=== PATIENT | female | born 1980 | race Caucasian/White ===

== ENCOUNTER 2018-04-13 07:48 | Emergency (ER) | payer OTHER ==
[~2018-04-13] VITALS: Ht 160 cm; Wt 84.1 kg
[2018-04-13] MEDS ORDERED: DULO60CA44 PO (08:21)
[2018-04-13] MEDS ORDERED: MOME17N NASAL (08:21)
[2018-04-13] MEDS ORDERED: OMEP20 PO (08:21)
[2018-04-13] MEDS ORDERED: LINA290C PO (08:21)
[2018-04-13] MEDS ORDERED: TROS60CA3 PO (08:21)
[2018-04-13] MEDS ORDERED: METH18TA PO (08:21)
[2018-04-13] MEDS ORDERED: ADV250 IH (08:21)
[2018-04-13] MEDS ORDERED: SODIUM CHLORIDE 0.9% 1,000 ML IV ONE (08:30)
[2018-04-13] MEDS ORDERED: KETOROLAC TROMETHAMINE 30 MG/ML VIAL IVP ONE (08:30)
[2018-04-13 08:46] LABS: BASOPHILS % (AUTO) 0.4 % (0.0-2.0); EOSINOPHILS % (AUTO) 1.7 % (1.0-6.0); HEMATOCRIT 36.6 % (36-46); HEMOGLOBIN 12.3 g/dL (12.0-16.0); LYMPHOCYTES # (AUTO) 2.3 K/uL (1.0-4.8); LYMPHOCYTES % (AUTO) 38.5 % (22.0-44.0); MEAN CORPUSCULAR HEMOGLOBIN 29.7 pg (26.0-34.0); MEAN CORPUSCULAR HGB CONC 33.5 G/dL (31.0-37.0); MEAN CORPUSCULAR VOLUME 89 fL (80-100); MONOCYTES # (AUTO) 0.4 K/uL (0.1-1.0); MONOCYTES % (AUTO) 7.2 % (2.0-9.0); NEUTROPHILS # (AUTO) 3.1 K/uL (1.8-7.7); NEUTROPHILS % (AUTO) 52.2 % (40.0-70.0); PLATELET COUNT (AUTO) 304 K/uL (150-450); RED BLOOD CELL COUNT(AUTO) 4.14 MIL/uL (4.00-5.20); RED CELL DISTRIBUTION WIDTH 13.9 % (11.5-14.5)
[2018-04-13 08:55] LABS: ANION GAP 6 mmol/L (8-16); CALCIUM, TOTAL 8.1 mg/dL (8.8-10.5); CARBON DIOXIDE 25 mmol/L (22-29); CHLORIDE 108 mmol/L (98-107); CREATININE 0.81 mg/dL (0.60-1.30); GLOMERULAR FILTR. RATE CALC > 60 mL/min (>60); GLUCOSE,RANDOM 101 mg/dL (70-110); POTASSIUM 4.2 mmol/L (3.5-5.1); SODIUM SERUM 139 mmol/L (136-145); UREA NITROGEN, BLOOD 14 mg/dL (7-18)
[2018-04-13] MEDS ORDERED: IOVERSOL 350 MG/ML 150 ML VIAL ONE (09:33)
[2018-04-13] MEDS ORDERED: SODIUM CHLORIDE 0.9% 100 ML ONE (09:34)
[2018-04-13 10:43] VITALS: BP 119/93
== END 2018-04-13 11:30 | disposition home or self-care (01) ==
LOC: EMS 07:49
DX: R55 Syncope and collapse (principal); M54.2 Cervicalgia; R51 Headache; M54.6 Pain in thoracic spine; J45.909 Unspecified asthma, uncomplicated; F41.9 Anxiety disorder, unspecified; F32.9 Major depressive disorder, single episode, unspecified; Z90.710 Acquired absence of both cervix and uterus; Z88.8 Allergy status to other drugs, medicaments and biological substances
CPT/HCPCS: 36415; 70450; 71275; 80048; 85025; 85379; 93005; 96361; 96374; 99285; J1885; J7030; J7050; Q9967

== ENCOUNTER 2019-05-13 20:04 | Emergency (ER) | payer OTHER ==
[~2019-05-13] VITALS: Ht 160 cm; Wt 79.5 kg
[~2019-05-13 20:04] MED LIST: ADV250 IH; DULO60CA44 PO; LINA290C PO; METH18TA PO; MOME17N NASAL; OMEP20 PO; TROS60CA3 PO
[2019-05-13] MEDS ORDERED: DULO20CA30 PO (20:46)
[2019-05-13] MEDS ORDERED: LINA145C PO (20:46)
[2019-05-13] MEDS ORDERED: METH36TA PO (20:46)
[2019-05-13] MEDS ORDERED: KETOROLAC TROMETHAMINE 30 MG/ML VIAL IM ONE (21:45)
[2019-05-13] MEDS ORDERED: KETOROLAC TROMETHAMINE 60 MG/2 ML VIAL IM ONE (21:45)
[2019-05-13 22:42] VITALS: BP 126/75
== END 2019-05-13 22:45 | disposition home or self-care (01) ==
LOC: EMS 20:06
DX: M54.12 Radiculopathy, cervical region (principal); M62.838 Other muscle spasm; F41.9 Anxiety disorder, unspecified; J45.909 Unspecified asthma, uncomplicated; F32.9 Major depressive disorder, single episode, unspecified; Z90.710 Acquired absence of both cervix and uterus
CPT/HCPCS: 96372; 99283; J1885